=== PATIENT | male | born 1950 | race Caucasian/White ===

== ENCOUNTER 2017-04-23 08:39 | Inpatient (IN) | payer OTHER, MEDICARE ==
[~2017-04-23] VITALS: Ht 182.9 cm; Wt 100.6 kg
[~2017-04-23 08:39] MED LIST: Z.0.UNKNOWN
[2017-04-23] MEDS ORDERED: SODIUM CHLOR 0.9% 1000 ML INJ 1,000 ML IV SCH (09:16)
[2017-04-23 09:17] VITALS: BP 183/96; PULSE 104; RESP 20; TEMP 98.3
--- NOTE | 2017-04-23 09:19 | PD ---
HPI Chief Complaint: Tremors, altered mental status Time Seen by Provider: 09:16 Travel History International Travel<30 days: No Contact w/Intl Traveler<30days: No History of Present Illness HPI Patient states he normally drinks 6 beers per day but has been cutting back recently and had a glass of wine last night. Apparently he was at the [facility] having normal blood work but when he stood up he became somewhat dizzy and noticed his arms and legs were shaking, they took his blood pressure noted to be significantly elevated so they called and wanted to bring him here. Patient denies any headache focalized wheeziness chest pain shortness of breath abdominal pain nausea vomiting. Patient states his symptoms are going on and off for the past few months, he does not know how long they have been going on now. PFSH Past Medical History Arthritis: No Asthma: No Autoimmune Disease: No Blood Disorders: No Anxiety: No Depression: No Heart Rhythm Problems: No Cancer: No Cardiovascular Problems: Yes High Cholesterol: Yes Chest Pain: No Congestive Heart Failure: No COPD: No Cerebrovascular Accident: No Diabetes: No Diminished Hearing: No Endocrine: No Gastrointestinal Disorders: Yes GERD: Yes Glaucoma: No Genitourinary: No Headaches: No Hepatitis: No Hiatal Hernia: No Hypertension: No Immune Disorder: No Kidney Stones: No Musculoskeletal: No Neurologic: Yes Psychiatric: No Reproductive: No Respiratory: No Migraines: No Myocardial Infarction: No Renal Failure: No Seizures: No Sickle Cell Disease: No Sleep Apnea: No Thyroid Disease: No Ulcer: No Past Surgical History Abdominal Surgery: No AICD: No Appendectomy: No Arteriovenous Shunt: No Cardiac Surgery: No Cholecystectomy: No Ear Surgery: No Endocrine Surgery: No Eye Surgery: No Genitourinary Surgery: No Gynecologic Surgery: No Insulin Pump: No Joint Replacement: No Oral Surgery: Yes (TEETH EXTRACTIONS) Pacemaker: No Thoracic Surgery: No Other Surgery: Yes Social History Alcohol Use: Yes (6 TO 8 DAILY, OCCASSIONALLY VODKA) Tobacco Use: Yes (1/2 PACK/DAY) Substance Use: No Allergies-Medications (Allergen,Severity, Reaction): Coded Allergies: No Known Allergies (Verified Adverse Reaction, Unknown, 04/23/17) Reported Meds & Prescriptions Reported Meds & Active Scripts Active Active Prescriptions or Reported Medications Unobtainable Review of Systems ROS Limitations: Altered Mental Status Except as stated in HPI: all other systems reviewed are Neg Physical Exam Narrative GENERAL: Well-developed, well-nourished, no obvious distress peer SKIN: Focused skin assessment warm/dry. HEAD: Atraumatic. Normocephalic. EYES: Pupils equal and round. No scleral icterus. No injection or drainage. ENT: No nasal bleeding or discharge. Mucous membranes pink and moist. NECK: Trachea midline. No JVD. CARDIOVASCULAR: Regular rate and rhythm. No murmur appreciated. RESPIRATORY: No accessory muscle use. Clear to auscultation. Breath sounds equal bilaterally. GASTROINTESTINAL: Abdomen soft, non-tender, nondistended. Hepatic and splenic margins not palpable. MUSCULOSKELETAL: No obvious deformities. No clubbing. No cyanosis. No edema. NEUROLOGICAL: Awake and alert, oriented to self and place, can tell me the date but has trouble identifying the month of the year. He has some mild stuttering , has tremor of his jaw as well as bilateral upper extremities and lower extremities. This seems to be at rest and when he spreads his fingers, has no pronator drift, significant tremor when performing [id number] but is able to find my finger with his own bilaterally. His DTRs are 2+ in bilateral equal in the patella and Achilles and brachial areas. Cranial nerves II through XII appear to be intact and nonfocal. PSYCHIATRIC: Appropriate mood and affect; insight and judgment normal. Data Data Last Documented VS Vital Signs Date Time Temp Pulse Resp B/P (MAP) Pulse Ox O2 Delivery O2 Flow Rate FiO2 04/23/17 12:41 105 18 190/97 (128) 94 Room Air 04/23/17 09:17 98.3 Orders Orders Electrocardiogram (04/23/17 09:16) Ammonia (04/23/17 09:16) Complete Blood Count With Diff (04/23/17 09:16) Comprehensive Metabolic Panel (04/23/17 09:16) Prothrombin Time / Inr (Pt) (04/23/17 09:16) Act Partial Throm Time (Ptt) (04/23/17 09:16) Thyroid Stimulating Hormone (04/23/17 09:16) Urinalysis - C+S If Indicated (04/23/17 09:16) Ct Brain W/O Iv Contrast(Rout) (04/23/17 09:16) Blood Glucose (04/23/17 09:16) Ecg Monitoring (04/23/17 09:16) Iv Access Insert/Monitor (04/23/17 09:16) Oximetry (04/23/17 09:16) Sodium Chloride 0.9% Flush (Ns Flush) (04/23/17 09:30) Sodium Chlor 0.9% 1000 Ml Inj (Ns 1000 M (04/23/17 09:16) Drug Screen, Random Urine (04/23/17 09:16) Alcohol (Ethanol) (04/23/17 09:16) Lorazepam Inj (Ativan Inj) (04/23/17 09:30) Lorazepam Inj (Ativan Inj) (04/23/17 11:00) Mri Brain W&W/O Contrast (04/23/17 ) Thiamine Inj (Thiamine Inj) (04/23/17 12:15) Admit Order (Ed Use Only) (04/23/17 ) Labs Laboratory Tests Test 04/23/17 09:25 04/23/17 09:30 White Blood Count 5.9 TH/MM3 Red Blood Count 4.05 MIL/MM3 Hemoglobin 13.0 GM/DL Hematocrit 38.6 % Mean Corpuscular Volume 95.3 FL Mean Corpuscular Hemoglobin 32.1 PG Mean Corpuscular Hemoglobin Concent 33.7 % Red Cell Distribution Width 14.5 % Platelet Count 52 TH/MM3 Mean Platelet Volume 9.1 FL Neutrophils (%) (Auto) 83.0 % Lymphocytes (%) (Auto) 7.8 % Monocytes (%) (Auto) 8.6 % Eosinophils (%) (Auto) 0.2 % Basophils (%) (Auto) 0.4 % Neutrophils # (Auto) 4.9 TH/MM3 Lymphocytes # (Auto) 0.5 TH/MM3 Monocytes # (Auto) 0.5 TH/MM3 Eosinophils # (Auto) 0.0 TH/MM3 Basophils # (Auto) 0.0 TH/MM3 CBC Comment AUTO DIFF Differential Comment AUTO DIFF CONFIRMED Platelet Estimate LOW Platelet Morphology Comment NORMAL Prothrombin Time 13.3 SEC Prothromb Time International Ratio 1.3 RATIO Activated Partial Thromboplast Time 29.8 SEC Blood Urea Nitrogen 8 MG/DL Creatinine 0.77 MG/DL Random Glucose 135 MG/DL Total Protein 8.8 GM/DL Albumin 4.0 GM/DL Calcium Level 9.2 MG/DL Alkaline Phosphatase 197 U/L Aspartate Amino Transf (AST/SGOT) 93 U/L Alanine Aminotransferase (ALT/SGPT) 34 U/L Total Bilirubin 2.0 MG/DL Sodium Level 136 MEQ/L Potassium Level 3.7 MEQ/L Chloride Level 100 MEQ/L Carbon Dioxide Level 22.3 MEQ/L Anion Gap 14 MEQ/L Estimat Glomerular Filtration Rate 101 ML/MIN Thyroid Stimulating Hormone 3rd Gen 2.510 uIU/ML Ethyl Alcohol Level 28 MG/DL Ammonia 33 MCMOL/L [facility] Medical Decision Making Medical Screen Exam Complete: Yes Emergency Medical Condition: Yes Differential Diagnosis Alcohol withdrawal, ataxia, tremors, cerebellar stroke is a possibility. Narrative Course Patient room to the emergency department, fairly disoriented and has tremors, he was given 3 mg of Ativan for the tremor is no better, nursing is spoken with the patient's , is unclear as to the timeline of the patient's symptoms. I have had no different than 3 different history from this patient. At first he told me he only had a glass of wine yesterday, then he told me he had a sixpack of beer yesterday according to his he continues to drink heavily every night and has done so for years. 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 On reassessment the patient's fairly diaphoretic consistent with alcohol withdrawals. My index of suspicion for cerebellar stroke is fairly low but the patient does have an MRI ordered and will pursue this. The patient was initially discussed with Dr. Gold and he would like the patient go to the ICU , discussed with Dr. Zelaya for admission and he is agreeable. MRI still pending at this time, this was discussed with Dr. Zelaya Critical Care Narrative Aggregate critical care time was 35 minutes. Time to perform other separately billable procedures was not included in the critical care time. My time did not include minutes spent treating any other patients simultaneously or on activities that did not directly contribute to the patient's treatment. The services I provided to this patient were to treat and/or prevent clinically significant deterioration that could result in: , disability, organ failure I provided critical care services requiring my management, as noted below: Patient required frequent reassessment and Ativan dosing. Chart data review, documentation time, medication orders and management, vital sign assessments/reviewing monitor data, ordering and reviewing lab tests, ordering and interpreting/reviewing x-rays and diagnostic studies, care of the patient and discussion of the patient with the admitting physicians. Diagnosis Primary Impression: Delirium tremens Admitting Information Admitting Physician Requests: Admit Scripts Unable to Obtain Active Prescriptions or Reported Meds Condition: Orion Rojas MD Apr 23, 2017 09:19
[2017-04-23] MEDS ORDERED: LORazepam 2 MG/ML VIAL IV PUSH ONE ×2 (09:30→11:00)
[2017-04-23] MEDS ORDERED: SODIUM CHLORIDE 0.9% FLUSH 10 ML FLUSH IV FLUSH PRN ×2 (09:30→13:15)
[2017-04-23 09:54] LABS: AUTOMATED NEUTROPHIL # 4.9 TH/MM3 (1.8-7.7); BASOPHIL % 0.4 % (0.0-2.0); EOSINOPHIL % 0.2 % (0.0-4.0); HEMATOCRIT 38.6 % (39.0-51.0); LYMPH % 7.8 % (9.0-44.0); LYMPHOCYTE # 0.5 TH/MM3 (1.0-4.8); MEAN CELL VOLUME 95.3 FL (80.0-100.0); MEAN CORPUSCULAR HEMOGLOBIN 32.1 PG (27.0-34.0); MEAN CORPUSCULAR HGB CONC 33.7 % (32.0-36.0); MEAN PLATELET VOLUME 9.1 FL (7.0-11.0); MONO % 8.6 % (0.0-8.0); MONOCYTE # 0.5 TH/MM3 (0-0.9); PLATELET COUNT 52 TH/MM3 (150-450); RED BLOOD COUNT 4.05 MIL/MM3 (4.50-5.90); RED CELL DISTRIBUTION WIDTH 14.5 % (11.6-17.2); WHITE BLOOD COUNT 5.9 TH/MM3 (4.0-11.0)
[2017-04-23 09:57] LABS: INTERNATIONAL NORMALIZED RATIO 1.3 RATIO; PROTHROMBIN TIME - PATIENT 13.3 SEC (9.8-11.6)
--- NOTE | 2017-04-23 09:57 | RADRPT ---
EXAM DATE/TIME: 04/23/2017 09:34 [facility] COMPARISON: CT BRAIN W/O CONTRAST, November 25, 2011, 9:50. INDICATIONS : Altered mental status. Dizziness. RADIATION DOSE: 38.73 CTDIvol (mGy) MEDICAL HISTORY : Cardiovascular disease. SURGICAL HISTORY : None. ENCOUNTER: Initial ACUITY: 1 day PAIN SCALE: 0/10 LOCATION: cranial TECHNIQUE: Multiple contiguous axial images were obtained of the head. Using automated exposure control and adj ustment of the mA and/or kV according to patient size, radiation dose was kept as low as reasonably a chievable to obtain optimal diagnostic quality images. DICOM format image data is available electro nically for review and comparison. FINDINGS: CEREBRUM: Mild diffuse cerebral volume loss. The ventricles are normal for age. No evidence of midline shift, mass lesion, hemorrhage or acute infarction. No extra-axial fluid collections are seen. POSTERIOR FOSSA: The cerebellum and brainstem are intact. The 4th ventricle is midline. The cerebellopontine angle i s unremarkable. EXTRACRANIAL: The visualized portion of the orbits is intact. SKULL: The calvaria is intact. No evidence of skull fracture. CONCLUSION: 1. No acute intracranial abnormality. Manny Chavez MD on April 23, 2017 at 9:51 Board Certified Radiologist. This report was verified electronically.
[2017-04-23 10:07] LABS: AST (GOT) 93 U/L (15-37); BICARBONATE 22.3 MEQ/L (21.0-32.0); BLOOD UREA NITROGEN 8 MG/DL (7-18); CALCIUM 9.2 MG/DL (8.5-10.1); CHLORIDE 100 MEQ/L (98-107); CREATININE 0.77 MG/DL (0.60-1.30); GLOMERULAR FILTRATION RATE 101 ML/MIN (>89); GLUCOSE,RANDOM 135 MG/DL (74-106); SODIUM (NA) 136 MEQ/L (136-145)
[2017-04-23 10:08] LABS: ALT (GPT) 34 U/L (12-78)
[2017-04-23 10:18] LABS: ALKALINE PHOSPHATASE 197 U/L (45-117); TOTAL PROTEIN 8.8 GM/DL (6.4-8.2)
[2017-04-23] MEDS ORDERED: THIAMINE INJ 100 MG in SODIUM CHLORIDE 0.9% INJ 100 ML IV ONE (12:15)
[2017-04-23 12:41] VITALS: BP 190/97; PULSE 105; RESP 18; O2SAT 94
[2017-04-23] MEDS ORDERED: SODIUM PHOSPHATE INJ 30 MMOL in SODIUM CHLOR 0.9% 250 ML INJ 240 ML IV PRN (13:15)
[2017-04-23] MEDS ORDERED: LACTULOSE SYRUP 20 GM/30 ML CUP PO PRN (13:15)
[2017-04-23] MEDS ORDERED: METOCLOPRAMIDE HCL 10 MG/2 ML VIAL IV PUSH PRN (13:15)
[2017-04-23] MEDS ORDERED: MAGNESIUM SULFATE INJ 4 GM in SODIUM CHLORIDE 0.9% INJ 92 ML IV PRN (13:15)
[2017-04-23] MEDS ORDERED: MAGNESIUM HYDROXIDE SUSP 30 ML CUP PO PRN (13:15)
[2017-04-23] MEDS ORDERED: MAGNESIUM OXIDE 400 MG TAB PO PRN (13:15)
[2017-04-23] MEDS ORDERED: cloNIDine HCL 0.1 MG TAB PO PRN (13:15)
[2017-04-23] MEDS ORDERED: POTASSIUM PHOSPHATE INJ 30 MMOL in SODIUM CHLOR 0.9% 250 ML INJ 250 ML IV PRN (13:15)
[2017-04-23] MEDS ORDERED: BISACODYL 10 MG SUPP RECTAL PRN (13:15)
[2017-04-23] MEDS ORDERED: POTASSIUM CHLOR 40 MEQ PREMIX 100 ML IV PRN ×2 (13:15)
[2017-04-23] MEDS ORDERED: POTASSIUM PHOSPHATE MONOBASIC 500 MG TAB PO/TUBE PRN (13:15)
[2017-04-23] MEDS ORDERED: MAGNESIUM SULFATE INJ 2 GM in SODIUM CHLORIDE 0.9% INJ 96 ML IV PRN (13:15)
[2017-04-23] MEDS ORDERED: POTASSIUM CHLORIDE 25 MEQ EFFERVESCENT TAB PO PRN (13:15)
[2017-04-23] MEDS ORDERED: ENOXAPARIN SODIUM 40 MG/0.4 ML SYRINGE SQ SCH (13:15)
[2017-04-23] MEDS ORDERED: ONDANSETRON HCL 4 MG/2 ML VIAL IV PUSH PRN ×2 (13:15)
[2017-04-23] MEDS ORDERED: MISCELLANEOUS NURSING INFORMATION XX SCH (13:15)
[2017-04-23] MEDS ORDERED: POTASSIUM CHLOR 20 MEQ PREMIX 100 ML IV PRN ×2 (13:15)
[2017-04-23] MEDS ORDERED: CHLORHEXIDINE GLUCONATE 2 % 1 PACK (2 CLOTHS) TOP PRN (13:15)
[2017-04-23] MEDS ORDERED: SENNOSIDES 8.6 MG TAB PO PRN (13:15)
[2017-04-23] MEDS ORDERED: RESP: ALBUTEROL 2.5 MG/IPRATROPIUM 0.5 MG NEB (PRN) INH (13:15)
[2017-04-23] MEDS ORDERED: ACETAMINOPHEN 325 MG TAB PO PRN (13:15)
[2017-04-23] MEDS ORDERED: POTASSIUM PHOSPHATE MONOBASIC 500 MG TAB PO PRN (13:15)
--- NOTE | 2017-04-23 13:54 | RADRPT ---
EXAM DATE/TIME: 04/23/2017 13:22 [facility] COMPARISON: CT BRAIN W/O CONTRAST, April 23, 2017, 9:34. INDICATIONS : Altered mental status. Dizziness. MEDICAL HISTORY : Hypercholesterolemia. Chronic obstructive pulmonary disease. Carcinoma, prostate. ETOH SURGICAL HISTORY : None. ENCOUNTER: Subsequent ACUITY: 2 day PAIN SCORE: 0/10 LOCATION: cranial TECHNIQUE: Multiplanar, multisequence MRI of the brain was performed without contrast. FINDINGS: CEREBRUM: The ventricles are normal for age. No evidence of midline shift, mass lesion, hemorrhage or acute in farction. No extraaxial fluid collections are seen. The pituitary gland and suprasellar cistern are normal in configuration. WHITE MATTER: Mild occasional benign-appearing white matter signal change. POSTERIOR FOSSA: The cerebellum and brainstem are intact. The 4th ventricle is midline. The cerebellopontine angle is unremarkable. The cerebellar tonsils are normal in position. DIFFUSION IMAGING: No focal areas of restricted diffusion are seen. No evidence of acute infarction. EXTRACRANIAL: The visualized portions of the orbits and paranasal sinuses are unremarkable. CONCLUSION: No acute intracranial findings Heriberto Bay MD on April 23, 2017 at 13:51 Board Certified Radiologist. This report was verified electronically.
[2017-04-23] MEDS ORDERED: cloNIDine HCL 0.2 MG TAB PO ONE (14:03)
[2017-04-23] MEDS: chlordiazePOXIDE 25 MG CAP PO SCH ×2 (14:52→21:01)
[2017-04-23] MEDS: PANTOPRAZOLE SODIUM 40 MG VIAL IV PUSH SCH (14:53)
[2017-04-23] MEDS: LORazepam 2 MG/ML VIAL IV PUSH SCH ×3 (14:53→22:59)
[2017-04-23] MEDS: MULTIVITAMIN INJ 10 ML, FOLIC ACID INJ 1 MG in SODIUM CHLORID 0.9% 500 ML INJ 500 ML IV SCH (15:05)
[2017-04-23] MEDS: D5-1/2 NS + KCL 20 MEQ INJ 1,000 ML IV SCH ×2 (15:07→22:59)
[2017-04-23 15:11] LABS: BILIRUBIN, URINE NEG (NEG); BLOOD, URINE NEG (NEG); GLUCOSE,URINE NEG (NEG); KETONE, URINE 10 mg/dL (NEG); NITRITE,URINE NEG (NEG); URINE COLOR YELLOW (YELLW/STRAW); URINE LEUKOCYTE ESTERASE NEG (NEG)
[2017-04-23 15:12] VITALS: BP 183/99; PULSE 96; RESP 17; O2SAT 93
--- NOTE | 2017-04-23 18:52 | EKG ---
Date Performed: 04/23/2017 Time Performed: 09:49:31 PTAGE: 67 years EKG: Sinus rhythm NORMAL ECG Since the prior tracing, there has been no significant change PREVIOUS TRACING : 11/25/2011 09.34 DOCTOR: Fatimah Green Interpretating Date/Time 04/23/2017 18:47:46
[2017-04-23 19:06] VITALS: BP 173/90; PULSE 86; RESP 16; O2SAT 95
[2017-04-23 20:00] VITALS: BP 167/88; PULSE 79; RESP 20; TEMP 99.5; O2SAT 95
[2017-04-23] MEDS: SODIUM CHLORIDE 0.9% FLUSH 10 ML FLUSH IV FLUSH SCH (20:49)
[2017-04-23] MEDS: DOCUSATE SODIUM 50 MG/SENNA 8.6 MG TAB PO SCH (20:49)
--- NOTE | 2017-04-23 21:37 | HHI.HP ---
HPI Service Critical Care Medicine Primary Care Physician [facility] Admission Diagnosis Alcohol Withdrawal/Tremors Diagnosis: Travel History International Travel<30 Days: No Contact w/Intl Traveler <30 Da: No Traveled to Known Affected Are: No History of Present Illness History of Present Illness HPI Patient states he normally drinks 6 beers per day but has been cutting back recently and had a glass of wine last night. [facility] but when he stood up he became somewhat dizzy and noticed his arms and legs were shaking, they took his blood pressure noted to be significantly elevated so they called and wanted to bring him here. Patient denies any headache focalized wheeziness chest pain shortness of breath abdominal pain nausea vomiting. Patient states his symptoms are going on and off for the past few months, he does not know how long they have been going on now. Patient was evaluated in the ER and was felt to be in alcohol withdrawal with bilateral tremors in his upper extremities. Hospitalist service was contacted however felt patient needed to be admitted to the ICU. Patient was accepted for admission by critical care medicine service. He had an MRI brain which was unremarkable. When I evaluated the patient following his arrival to the ICU he was laying in bed comfortably not in any acute distress. He did not appear anxious or agitated. His CIWA score was 12 and he received Ativan per protocol. History PFSH Past Medical History Arthritis: No Asthma: No Autoimmune Disease: No Blood Disorders: No Anxiety: No Depression: No Heart Rhythm Problems: No Cancer: No Cardiovascular Problems: Yes High Cholesterol: Yes Chest Pain: No Congestive Heart Failure: No COPD: No Cerebrovascular Accident: No Diabetes: No Diminished Hearing: No Endocrine: No Gastrointestinal Disorders: Yes GERD: Yes Glaucoma: No Genitourinary: No Headaches: No Hepatitis: No Hiatal Hernia: No Hypertension: No Immune Disorder: No Kidney Stones: No Musculoskeletal: No Neurologic: Yes Psychiatric: No Reproductive: No Respiratory: No Migraines: No Myocardial Infarction: No Renal Failure: No Seizures: No Sickle Cell Disease: No Sleep Apnea: No Thyroid Disease: No Ulcer: No Past Surgical History Abdominal Surgery: No AICD: No Appendectomy: No Arteriovenous Shunt: No Cardiac Surgery: No Cholecystectomy: No Ear Surgery: No Endocrine Surgery: No Eye Surgery: No Genitourinary Surgery: No Gynecologic Surgery: No Insulin Pump: No Joint Replacement: No Oral Surgery: Yes (TEETH EXTRACTIONS) Pacemaker: No Thoracic Surgery: No Other Surgery: Yes Social History Alcohol Use: Yes (6 TO 8 DAILY, OCCASSIONALLY VODKA) Tobacco Use: Yes (1/2 PACK/DAY) Substance Use: No Allergies-Medications Allergies-Medications (Allergen,Severity, Reaction): Coded Allergies: No Known Allergies (Verified Adverse Reaction, Unknown, 04/23/17) Reported Meds & Prescriptions Reported Meds & Active Scripts Active Active Prescriptions or Reported Medications Unobtainable ROS Review of Systems Except as stated in HPI: all other systems reviewed are Neg Past Family Social History Allergies: Coded Allergies: No Known Allergies (Verified Allergy, Unknown, 04/23/17) Physical Exam Vital Signs Vital Signs Date Time Temp Pulse Resp B/P (MAP) Pulse Ox O2 Delivery O2 Flow Rate FiO2 04/23/17 20:00 79 04/23/17 20:00 99.5 79 20 167/88 (114) 95 04/23/17 19:06 86 16 173/90 (117) 95 Room Air 04/23/17 15:12 96 17 183/99 (127) 93 Room Air 04/23/17 12:41 105 18 190/97 (128) 94 Room Air 04/23/17 09:17 98.3 104 20 183/96 (125) Physical Exam Narrative GENERAL: Well-developed, well-nourished, no obvious distress peer SKIN: Focused skin assessment warm/dry. HEAD: Atraumatic. Normocephalic. EYES: Pupils equal and round. No scleral icterus. No injection or drainage. ENT: No nasal bleeding or discharge. Mucous membranes pink and moist. NECK: Trachea midline. No JVD. CARDIOVASCULAR: Regular rate and rhythm. No murmur appreciated. RESPIRATORY: No accessory muscle use. Clear to auscultation. Breath sounds equal bilaterally. GASTROINTESTINAL: Abdomen soft, non-tender, nondistended. Hepatic and splenic margins not palpable. MUSCULOSKELETAL: No obvious deformities. No clubbing. No cyanosis. No edema. NEUROLOGICAL: Awake and alert, oriented to self and place, can tell me the date but has trouble identifying the month of the year. He has some mild stuttering , has tremor of his jaw as well as bilateral upper extremities and lower extremities. This seems to be at rest and when he spreads his fingers, has no pronator drift, significant tremor when performing [id number] but is able to find my finger with his own bilaterally. His DTRs are 2+ in bilateral equal in the patella and Achilles and brachial areas. Cranial nerves II through XII appear to be intact and nonfocal. PSYCHIATRIC: Appropriate mood and affect; insight and judgment normal. Laboratory Laboratory Tests Test 04/23/17 09:25 04/23/17 09:30 04/23/17 14:42 White Blood Count 5.9 Red Blood Count 4.05 Hemoglobin 13.0 Hematocrit 38.6 Mean Corpuscular Volume 95.3 Mean Corpuscular Hemoglobin 32.1 Mean Corpuscular Hemoglobin Concent 33.7 Red Cell Distribution Width 14.5 Platelet Count 52 Mean Platelet Volume 9.1 Neutrophils (%) (Auto) 83.0 Lymphocytes (%) (Auto) 7.8 Monocytes (%) (Auto) 8.6 Eosinophils (%) (Auto) 0.2 Basophils (%) (Auto) 0.4 Neutrophils # (Auto) 4.9 Lymphocytes # (Auto) 0.5 Monocytes # (Auto) 0.5 Eosinophils # (Auto) 0.0 Basophils # (Auto) 0.0 CBC Comment AUTO DIFF Differential Comment AUTO DIFF CONFIRMED Platelet Estimate LOW Platelet Morphology Comment NORMAL Prothrombin Time 13.3 Prothromb Time International Ratio 1.3 Activated Partial Thromboplast Time 29.8 Blood Urea Nitrogen 8 Creatinine 0.77 Random Glucose 135 Total Protein 8.8 Albumin 4.0 Calcium Level 9.2 Alkaline Phosphatase 197 Aspartate Amino Transf (AST/SGOT) 93 Alanine Aminotransferase (ALT/SGPT) 34 Total Bilirubin 2.0 Sodium Level 136 Potassium Level 3.7 Chloride Level 100 Carbon Dioxide Level 22.3 Anion Gap 14 Estimat Glomerular Filtration Rate 101 Thyroid Stimulating Hormone 3rd Gen 2.510 Ethyl Alcohol Level 28 Ammonia 33 Urine Color YELLOW Urine Turbidity CLEAR Urine pH 8.0 Urine Specific [place] 1.012 Urine Protein TRACE Urine Glucose (UA) NEG Urine Ketones 10 Urine Occult Blood NEG Urine Nitrite NEG Urine Bilirubin NEG Urine Urobilinogen LESS THAN 2.0 Urine Leukocyte Esterase NEG Urine RBC 1 Microscopic Urinalysis Comment CATH-CULT NOT IND Urine Opiates Screen NEG Urine Barbiturates Screen NEG Urine Amphetamines Screen NEG Urine Benzodiazepines Screen NEG Urine Cocaine Screen NEG Urine Cannabinoids Screen NEG Result Diagram: 04/23/1792404/23/17924 Imaging Last Impressions Head CT 04/23/17 0916 Signed Impressions: Service Date/Time: Sunday, April 23, 2017 09:34 - CONCLUSION: 1. No acute intracranial abnormality. Manny Chavez MD Brain MRI 04/23/17 0000 Signed Impressions: Service Date/Time: Sunday, April 23, 2017 13:22 - CONCLUSION: No acute intracranial findings Heriberto Bay MD Caprini VTE Risk Assessment Caprini VTE Risk Assessment: Mod/High Risk (score >= 2) Caprini Risk Assessment Model Point Value = 1 Point Value = 2 Point Value = 3 Point Value = 5 Age 41-60 Minor surgery BMI > 25 kg/m2 Swollen legs Varicose veins or History of unexplained or recurrent spontaneous Oral contraceptives or hormone replacement Sepsis (< 1 month) Serious lung disease, including pneumonia (< 1 month) Abnormal pulmonary function Acute myocardial infarction Congestive heart failure (< 1 month) History of inflammatory bowel disease Medical patient at bed rest Age 61-74 Arthroscopic surgery Major open surgery (> 45 min) Laparoscopic surgery (> 45 min) Malignancy Confined to bed (> 72 hours) Immobilizing plaster cast Central venous access Age >= 75 History of VTE Family history of VTE Factor V Leiden Prothrombin [id number] Lupus anticoagulant Anticardiolipin antibodies Elevated serum homocysteine Heparin-induced thrombocytopenia Other congenital or acquired thrombophilia Stroke (< 1 month) Elective arthroplasty Hip, pelvis, or leg fracture Acute spinal cord injury (< 1 month) Prophylaxis Regimen Total Risk Factor Score Risk Level Prophylaxis Regimen 0-1 Low Early ambulation 2 Moderate Order ONE of the following: *Sequential Compression Device (SCD) *Heparin 5000 units SQ BID 3-4 Higher Order ONE of the following medications: *Heparin 5000 units SQ TID *Enoxaparin/Lovenox 40 mg SQ daily (WT < 150 kg, CrCl > 30 mL/min) *Enoxaparin/Lovenox 30 mg SQ daily (WT < 150 kg, CrCl > 10-29 mL/min) *Enoxaparin/Lovenox 30 mg SQ BID (WT < 150 kg, CrCl > 30 mL/min) AND/OR *Sequential Compression Device (SCD) 5 or more Highest Order ONE of the following medications: *Heparin 5000 units SQ TID (Preferred with Epidurals) *Enoxaparin/Lovenox 40 mg SQ daily (WT < 150 kg, CrCl > 30 mL/min) *Enoxaparin/Lovenox 30 mg SQ daily (WT < 150 kg, CrCl > 10-29 mL/min) *Enoxaparin/Lovenox 30 mg SQ BID (WT < 150 kg, CrCl > 30 mL/min) AND *Sequential Compression Device (SCD) Assessment and Plan Assessment and Plan Encephalopathy Alcohol withdrawal Hypertension Plan: Patient admitted to ICU per Hospitalist request per Dr. Santos. On alcohol withdrawal protocol. Continue Ativan/clonidine/Librium as ordered. MRI brain unremarkable. Patient currently appears well controlled on C were protocol. Continue thiamine MVI folic acid. Transferred to hospitalist service for further medical management. No critical care issues at the time of my evaluation. Further recommendations per hospitalist service Critical care will be signing off at this time. He is reconsult if needed. I am ordering patient transfer out of ICU. Chandrakant Zelaya MD Apr 23, 2017 21:36
[2017-04-23 22:00] VITALS: PULSE 73
[2017-04-23] MEDS: LORazepam 2 MG/ML VIAL IV PUSH PRN (22:58)
[2017-04-23] MEDS: cloNIDine HCL 0.1 MG TAB PO SCH (22:58)
[2017-04-24] VITALS (25 sets, daily range): BP systolic 145–180; BP diastolic 77–109; PULSE 64–127; RESP 19–25; TEMP 97.4–99.5; O2SAT 95–97
[2017-04-24] MEDS: LORazepam 2 MG/ML VIAL IV PUSH PRN ×9 (00:16→22:24)
[2017-04-24] MEDS: LORazepam 2 MG/ML VIAL IV PUSH SCH ×2 (02:56→06:39)
[2017-04-24 04:10] LABS: AUTOMATED NEUTROPHIL # 3.4 TH/MM3 (1.8-7.7); BASOPHIL % 0.6 % (0.0-2.0); EOSINOPHIL % 0.9 % (0.0-4.0); HEMATOCRIT 37.4 % (39.0-51.0); HEMOGLOBIN 12.7 GM/DL (13.0-17.0); LYMPH % 11.2 % (9.0-44.0); LYMPHOCYTE # 0.5 TH/MM3 (1.0-4.8); MEAN CELL VOLUME 94.8 FL (80.0-100.0); MEAN CORPUSCULAR HEMOGLOBIN 32.2 PG (27.0-34.0); MEAN PLATELET VOLUME 9.1 FL (7.0-11.0); MONO % 11.9 % (0.0-8.0); MONOCYTE # 0.5 TH/MM3 (0-0.9); NEUT % 75.4 % (16.0-70.0); PLATELET COUNT 50 TH/MM3 (150-450); RED BLOOD COUNT 3.94 MIL/MM3 (4.50-5.90); RED CELL DISTRIBUTION WIDTH 14.8 % (11.6-17.2); WHITE BLOOD COUNT 4.4 TH/MM3 (4.0-11.0)
[2017-04-24 04:40] LABS: ALBUMIN 3.4 GM/DL (3.4-5.0); ALKALINE PHOSPHATASE 171 U/L (45-117); ALT (GPT) 32 U/L (12-78); AST (GOT) 74 U/L (15-37); BICARBONATE 22.5 MEQ/L (21.0-32.0); BLOOD UREA NITROGEN 8 MG/DL (7-18); CALCIUM 8.4 MG/DL (8.5-10.1); CHLORIDE 105 MEQ/L (98-107); CREATININE 0.64 MG/DL (0.60-1.30); GLOMERULAR FILTRATION RATE 126 ML/MIN (>89); GLUCOSE,RANDOM 122 MG/DL (74-106); SODIUM (NA) 137 MEQ/L (136-145); TOTAL BILIRUBIN ADULT 2.3 MG/DL (0.2-1.0)
[2017-04-24] MEDS: CHLORHEXIDINE GLUCONATE 2 % 1 PACK (2 CLOTHS) TOP SCH (04:45)
[2017-04-24] MEDS: cloNIDine HCL 0.1 MG TAB PO SCH ×3 (06:39→20:54)
[2017-04-24] MEDS: D5-1/2 NS + KCL 20 MEQ INJ 1,000 ML IV SCH ×2 (06:40→20:28)
[2017-04-24] MEDS: PANTOPRAZOLE SODIUM 40 MG VIAL IV PUSH SCH (07:44)
[2017-04-24] MEDS: SODIUM CHLORIDE 0.9% FLUSH 10 ML FLUSH IV FLUSH SCH ×2 (07:44→20:28)
[2017-04-24] MEDS: DOCUSATE SODIUM 50 MG/SENNA 8.6 MG TAB PO SCH ×2 (07:44→20:29)
[2017-04-24] MEDS: chlordiazePOXIDE 25 MG CAP PO SCH ×3 (07:44→17:34)
[2017-04-24] MEDS: ARTIFICIAL TEARS OPTH SOLN 15 ML BTL EACH EYE SCH ×3 (07:47→18:00)
--- NOTE | 2017-04-24 11:40 | HHI.PR ---
Subjective Remarks Patient's mental status is improved. He still does not demonstrate an ability to recognize his physical deficit. He tried to get out of bed and almost fell. Delirium tremens is under control with present treatment. Objective Vital Signs Date Time Temp Pulse Resp B/P (MAP) Pulse Ox O2 Delivery O2 Flow Rate FiO2 04/24/17 06:00 71 04/24/17 04:00 72 04/24/17 04:00 99.1 72 25 160/88 (112) 96 04/24/17 02:00 68 04/24/17 00:00 71 04/24/17 00:00 99.0 71 20 145/77 (99) 95 04/23/17 22:00 73 04/23/17 20:00 79 04/23/17 20:00 99.5 79 20 167/88 (114) 95 04/23/17 19:06 86 16 173/90 (117) 95 Room Air 04/23/17 15:12 96 17 183/99 (127) 93 Room Air 04/23/17 12:41 105 18 190/97 (128) 94 Room Air I/O 04/23/17 04/23/17 04/23/17 04/24/17 04/24/17 04/24/17 07:00 15:00 23:00 07:00 15:00 23:00 Intake Total 1101 ml Output Total 1875 ml Balance 1101 ml -1875 ml Intake IV Total 1101 ml Output Urine Total 1875 ml Result Diagram: 04/24/17 0341 04/24/17 0341 Objective Remarks GENERAL: NAD, A&Ox3, no tremors. HEAD: Normocephalic. NECK: Supple, trachea midline. No lymphadenopathy. EYES: No scleral icterus. No injection or drainage. CARDIOVASCULAR: Regular rate and rhythm without murmurs, gallops, or rubs. RESPIRATORY: Breath sounds equal bilaterally. No accessory muscle use. GASTROINTESTINAL: Abdomen soft, non-tender, nondistended. MUSCULOSKELETAL: No cyanosis, or edema. SKIN: Warm and dry. NEURO: No focal neurological deficitis. Global weakness. A/P Problem List: (1) Delirium tremens ICD Code: F10.231 - Alcohol dependence with withdrawal delirium Status: Acute Assessment and Plan 67-year-old male admitted secondary to delirium tremens Encephalopathy Improved Alcoholism Delirium tremens Alcohol withdrawal Continue lap restraint due to fall risk and decreased judgment and patient Discontinue wrist restraints Monitor for withdrawal Continue CIWA protocol Continue folic acid Continue thiamine Global weakness Related to delirium tremens Start physical therapy Hypertension Continue baseline blood pressure treatment Continue as needed blood pressure treatments Follow blood pressures Treat delirium tremens DVT prophylaxis Darius Westbrook MD Apr 24, 2017 11:40
[2017-04-24] MEDS: ENOXAPARIN SODIUM 40 MG/0.4 ML SYRINGE SQ SCH (12:58)
[2017-04-24] MEDS: THIAMINE INJ 100 MG in SODIUM CHLORIDE 0.9% INJ 100 ML IV SCH (12:58)
[2017-04-24] MEDS: MULTIVITAMIN INJ 10 ML, FOLIC ACID INJ 1 MG in SODIUM CHLORID 0.9% 500 ML INJ 500 ML IV SCH (13:39)
[2017-04-25] VITALS (10 sets, daily range): BP systolic 111–178; BP diastolic 64–85; PULSE 69–121; RESP 19–24; TEMP 97.4–98.6; O2SAT 92–96
[2017-04-25] MEDS: LORazepam 2 MG/ML VIAL IV PUSH PRN ×5 (01:20→08:46)
[2017-04-25] MEDS: CHLORHEXIDINE GLUCONATE 2 % 1 PACK (2 CLOTHS) TOP SCH (04:00)
[2017-04-25] MEDS: cloNIDine HCL 0.1 MG TAB PO SCH ×3 (06:08→21:09)
[2017-04-25] MEDS: D5-1/2 NS + KCL 20 MEQ INJ 1,000 ML IV SCH ×3 (06:52→21:11)
[2017-04-25 06:58] LABS: AUTOMATED NEUTROPHIL # 5.6 TH/MM3 (1.8-7.7); BASOPHIL % 0.4 % (0.0-2.0); EOSINOPHIL % 0.4 % (0.0-4.0); HEMATOCRIT 40.6 % (39.0-51.0); HEMOGLOBIN 13.7 GM/DL (13.0-17.0); LYMPH % 9.2 % (9.0-44.0); LYMPHOCYTE # 0.7 TH/MM3 (1.0-4.8); MEAN CELL VOLUME 94.3 FL (80.0-100.0); MEAN CORPUSCULAR HEMOGLOBIN 31.8 PG (27.0-34.0); MEAN CORPUSCULAR HGB CONC 33.7 % (32.0-36.0); MEAN PLATELET VOLUME 9.5 FL (7.0-11.0); MONO % 13.4 % (0.0-8.0); NEUT % 76.6 % (16.0-70.0); PLATELET COUNT 57 TH/MM3 (150-450); RED CELL DISTRIBUTION WIDTH 14.4 % (11.6-17.2); WHITE BLOOD COUNT 7.3 TH/MM3 (4.0-11.0)
[2017-04-25 07:35] LABS: ALKALINE PHOSPHATASE 190 U/L (45-117); ALT (GPT) 37 U/L (12-78); AST (GOT) 98 U/L (15-37); BICARBONATE 19.7 MEQ/L (21.0-32.0); BLOOD UREA NITROGEN 9 MG/DL (7-18); CALCIUM 9.1 MG/DL (8.5-10.1); CHLORIDE 105 MEQ/L (98-107); GLOMERULAR FILTRATION RATE 97 ML/MIN (>89); GLUCOSE,RANDOM 116 MG/DL (74-106); SODIUM (NA) 136 MEQ/L (136-145); TOTAL BILIRUBIN ADULT 2.6 MG/DL (0.2-1.0); TOTAL PROTEIN 9.2 GM/DL (6.4-8.2)
[2017-04-25] MEDS: SODIUM CHLORIDE 0.9% FLUSH 10 ML FLUSH IV FLUSH SCH ×2 (08:44→21:00)
[2017-04-25] MEDS: PANTOPRAZOLE SODIUM 40 MG VIAL IV PUSH SCH (08:45)
[2017-04-25] MEDS: DOCUSATE SODIUM 50 MG/SENNA 8.6 MG TAB PO SCH ×2 (08:45→21:00)
[2017-04-25] MEDS: chlordiazePOXIDE 25 MG CAP PO SCH ×3 (08:45→18:03)
[2017-04-25] MEDS: ARTIFICIAL TEARS OPTH SOLN 15 ML BTL EACH EYE SCH ×3 (09:45→16:55)
--- NOTE | 2017-04-25 12:42 | HHI.PR ---
Subjective Remarks earlier per staff- agitated now irritable, kept eyes closed all times but responded in an angry manner states his name , "what" moves and withdraws all extremities to stimuli Objective Vitals Vital Signs Date Time Temp Pulse Resp B/P (MAP) Pulse Ox O2 Delivery O2 Flow Rate FiO2 04/25/17 12:24 97.4 77 20 111/64 (80) 95 04/25/17 11:45 94 Room Air 04/25/17 08:33 98.6 107 20 159/79 (105) 94 04/25/17 04:13 Room Air 04/25/17 04:12 98.4 106 20 151/83 (105) 96 04/25/17 04:00 112 04/25/17 00:50 98.0 113 20 178/84 (115) 96 04/25/17 00:00 121 04/25/17 00:00 Room Air 04/24/17 23:32 99.0 127 24 180/109 (132) 96 04/24/17 20:31 98.4 73 20 178/98 (124) 97 04/24/17 20:30 98.4 76 19 178/98 (124) 97 04/24/17 20:00 64 04/24/17 20:00 Room Air 04/24/17 16:50 97.4 65 19 177/89 (118) 96 04/24/17 14:30 76 04/24/17 14:00 90 04/24/17 13:30 65 04/24/17 13:00 80 I/O 04/24/17 04/24/17 04/24/17 04/25/17 04/25/17 04/25/17 06:59 14:59 22:59 06:59 14:59 22:59 Intake Total 1239 ml 999 ml Output Total 1875 ml 375 ml 1775 ml Balance -1875 ml 864 ml -776 ml Intake Oral 240 ml 0 ml IV Total 999 ml 999 ml Output Urine Total 1875 ml 375 ml 1775 ml # Bowel Movements 0 Result Diagram: 04/25/17 0529 04/25/17 0529 Imaging Last Impressions Head CT 04/23/17 0916 Signed Impressions: Service Date/Time: Sunday, April 23, 2017 09:34 - CONCLUSION: 1. No acute intracranial abnormality. Manny Chavez MD Brain MRI 04/23/17 0000 Signed Impressions: Service Date/Time: Sunday, April 23, 2017 13:22 - CONCLUSION: No acute intracranial findings Heriberto Bay MD Objective Remarks drowsy, easily agitated anicteric, pupils equal conjunctivae with yellowish discharge, injected conjunctivae neck supple lungs- no rales or wheezes regular rhythm abdomen soft, globular, + bowel sounds, nontender, no rebound extremities no edema Neuro exam_ drowsy, moves all extremities spontaenously and to painful stimuli A/P Assessment and Plan 67-year-old male admitted secondary to delirium tremens Encephalopathy secondary to DTs - monitor MS Alcoholism- Delirium tremens Alcohol withdrawal Continue lap restraint due to fall risk and decreased judgment and patient Discontinue wrist restraints Monitor for withdrawal Continue CIWA protocol Continue folic acid Continue thiamine Global weakness Related to delirium tremens PT/OT daily will need rehab Hypertension - continue Clonidine 0.1 mg po q 8 Continue as needed blood pressure treatments Follow blood pressures Treat delirium tremens DVT prophylaxis Lovenox CM consult- will need SNF ideally Bonny Perez MD Apr 25, 2017 12:42
[2017-04-25] MEDS: THIAMINE INJ 100 MG in SODIUM CHLORIDE 0.9% INJ 100 ML IV SCH (13:48)
[2017-04-25] MEDS: ENOXAPARIN SODIUM 40 MG/0.4 ML SYRINGE SQ SCH (13:49)
[2017-04-25] MEDS: MULTIVITAMIN INJ 10 ML, FOLIC ACID INJ 1 MG in SODIUM CHLORID 0.9% 500 ML INJ 500 ML IV SCH (15:13)
[2017-04-26] VITALS (12 sets, daily range): BP systolic 110–146; BP diastolic 57–89; PULSE 58–82; RESP 18–24; TEMP 97–98.7; O2SAT 94–96
[2017-04-26] MEDS: CHLORHEXIDINE GLUCONATE 2 % 1 PACK (2 CLOTHS) TOP SCH (03:41)
[2017-04-26] MEDS: cloNIDine HCL 0.1 MG TAB PO SCH ×3 (06:08→21:24)
[2017-04-26] MEDS: PANTOPRAZOLE SODIUM 40 MG VIAL IV PUSH SCH (08:43)
[2017-04-26] MEDS: THIAMINE HCL 100 MG TAB PO SCH (08:43)
[2017-04-26] MEDS: DOCUSATE SODIUM 50 MG/SENNA 8.6 MG TAB PO SCH ×2 (08:43→21:00)
[2017-04-26] MEDS: chlordiazePOXIDE 25 MG CAP PO SCH ×3 (08:43→17:09)
[2017-04-26] MEDS: SODIUM CHLORIDE 0.9% FLUSH 10 ML FLUSH IV FLUSH SCH ×2 (08:44→21:25)
[2017-04-26] MEDS: D5-1/2 NS + KCL 20 MEQ INJ 1,000 ML IV SCH (08:48)
[2017-04-26] MEDS: ARTIFICIAL TEARS OPTH SOLN 15 ML BTL EACH EYE SCH ×3 (08:48→17:09)
--- NOTE | 2017-04-26 09:41 | HHI.PR ---
Subjective Remarks patient is definitely more pleasant and interactive in a good mood denies any pain Objective Vitals Vital Signs Date Time Temp Pulse Resp B/P (MAP) Pulse Ox O2 Delivery O2 Flow Rate FiO2 04/26/17 08:48 97.0 66 20 131/76 (94) 95 04/26/17 04:00 61 04/26/17 03:58 Room Air 04/26/17 03:56 98.7 66 18 146/83 (104) 94 04/26/17 00:15 98.2 58 24 127/69 (88) 96 04/26/17 00:00 59 04/25/17 21:08 97.5 69 24 126/71 (89) 92 04/25/17 20:10 Room Air 04/25/17 16:09 98.4 75 19 136/85 (102) 95 04/25/17 12:24 97.4 77 20 111/64 (80) 95 04/25/17 12:00 77 04/25/17 11:45 94 Room Air I/O 04/25/17 04/25/17 04/25/17 04/26/17 04/26/17 04/26/17 06:59 14:59 22:59 06:59 14:59 22:59 Intake Total 999 ml 3079 ml 0 ml Output Total 1775 ml 450 ml Balance -776 ml 3079 ml -450 ml Intake Oral 0 ml 480 ml 0 ml IV Total 999 ml 2599 ml Output Urine Total 1775 ml 450 ml # Voids 3 # Bowel Movements 0 0 0 Result Diagram: 04/25/17 0529 04/25/17 0529 Imaging Last Impressions Head CT 04/23/17 0916 Signed Impressions: Service Date/Time: Sunday, April 23, 2017 09:34 - CONCLUSION: 1. No acute intracranial abnormality. Manny Chavez MD Brain MRI 04/23/17 0000 Signed Impressions: Service Date/Time: Sunday, April 23, 2017 13:22 - CONCLUSION: No acute intracranial findings Heriberto Bay MD Objective Remarks awake and alert, and pleasant and interactive anicteric conjunctivae- less erythema, less pus neck supple lungs- no rales or wheezes regular rhythm abdomen soft, globular, + bowel sounds, nontender, no rebound extremities no edema Neuro exam_- a x ox 3, CN intact moves all extremities spontaneously A/P Assessment and Plan 67-year-old male admitted secondary to delirium tremens Encephalopathy secondary to DTs - monitor MS- Improved Alcoholism- Delirium tremens Alcohol withdrawal Continue CIWA protocol Continue folic acid Continue thiamine Global weakness Related to delirium tremens PT/OT daily will need rehab Hypertension- - continue Clonidine 0.1 mg po q 8- improved Continue as needed blood pressure treatments Follow blood pressures Treat delirium tremens Alcohol Liver disease - counselled extensively 'ff LFTs DVT prophylaxis Lovenox Increase activity CM consult-OP referral to Bonny Blunt MD Apr 26, 2017 09:41
[2017-04-26] MEDS: ENOXAPARIN SODIUM 40 MG/0.4 ML SYRINGE SQ SCH (12:27)
[2017-04-26 14:15] LABS: ALBUMIN 3.2 GM/DL (3.4-5.0); ALT (GPT) 39 U/L (12-78); AST (GOT) 88 U/L (15-37); BLOOD UREA NITROGEN 10 MG/DL (7-18); CALCIUM 8.7 MG/DL (8.5-10.1); CREATININE 0.83 MG/DL (0.60-1.30); GLOMERULAR FILTRATION RATE 93 ML/MIN (>89); GLUCOSE,RANDOM 176 MG/DL (74-106); SODIUM (NA) 136 MEQ/L (136-145)
[2017-04-26 14:16] LABS: BICARBONATE 21.3 MEQ/L (21.0-32.0); CHLORIDE 106 MEQ/L (98-107)
[2017-04-26 14:19] LABS: ALKALINE PHOSPHATASE 150 U/L (45-117); TOTAL BILIRUBIN ADULT 1.7 MG/DL (0.2-1.0); TOTAL PROTEIN 7.5 GM/DL (6.4-8.2)
[2017-04-27] VITALS (10 sets, daily range): BP systolic 110–143; BP diastolic 61–75; PULSE 53–74; RESP 18–20; TEMP 98.2–98.8; O2SAT 94–96
[2017-04-27] MEDS: CHLORHEXIDINE GLUCONATE 2 % 1 PACK (2 CLOTHS) TOP SCH (04:00)
[2017-04-27] MEDS: cloNIDine HCL 0.1 MG TAB PO SCH ×3 (06:07→22:00)
[2017-04-27] MEDS: ARTIFICIAL TEARS OPTH SOLN 15 ML BTL EACH EYE SCH ×3 (08:25→17:46)
[2017-04-27] MEDS: SODIUM CHLORIDE 0.9% FLUSH 10 ML FLUSH IV FLUSH SCH ×2 (08:26→20:48)
[2017-04-27] MEDS: THIAMINE HCL 100 MG TAB PO SCH (08:26)
[2017-04-27] MEDS: DOCUSATE SODIUM 50 MG/SENNA 8.6 MG TAB PO SCH ×2 (08:27→20:47)
[2017-04-27] MEDS: chlordiazePOXIDE 25 MG CAP PO SCH ×2 (08:27→20:47)
[2017-04-27] MEDS: PANTOPRAZOLE SODIUM 40 MG VIAL IV PUSH SCH (08:28)
--- NOTE | 2017-04-27 12:03 | HHI.PR ---
Subjective Remarks feeling better no nausea or vomiting Objective Vitals Vital Signs Date Time Temp Pulse Resp B/P (MAP) Pulse Ox O2 Delivery O2 Flow Rate FiO2 04/27/17 08:00 98.2 70 20 125/75 (92) 94 04/27/17 08:00 58 04/27/17 08:00 Room Air 04/27/17 05:27 98.4 70 18 143/75 (97) 96 04/27/17 04:00 56 04/27/17 00:00 74 04/26/17 23:28 98.6 74 18 133/74 (93) 95 04/26/17 21:19 98.2 77 20 146/89 (108) 94 04/26/17 20:00 61 04/26/17 20:00 Room Air 04/26/17 16:00 97.9 79 18 110/57 (74) 94 04/26/17 16:00 82 04/26/17 14:00 116/70 (85) I/O 04/26/17 04/26/17 04/26/17 04/27/17 04/27/17 04/27/17 07:00 15:00 23:00 07:00 15:00 23:00 Intake Total 0 ml 1250 ml 480 ml 240 ml Output Total 450 ml 1000 ml 1150 ml Balance -450 ml 1250 ml -520 ml -910 ml Intake Oral 0 ml 480 ml 240 ml IV Total 1250 ml Output Urine Total 450 ml 1000 ml 1150 ml # Bowel Movements 0 0 Result Diagram: 04/25/17 0529 04/26/17 1335 Imaging Last Impressions Head CT 04/23/17 0916 Signed Impressions: Service Date/Time: Sunday, April 23, 2017 09:34 - CONCLUSION: 1. No acute intracranial abnormality. Manny Chavez MD Brain MRI 04/23/17 0000 Signed Impressions: Service Date/Time: Sunday, April 23, 2017 13:22 - CONCLUSION: No acute intracranial findings Heriberto Bay MD Objective Remarks awake and alert, and pleasant and interactive anicteric conjunctivae- less erythema, neck supple lungs- no rales or wheezes regular rhythm abdomen soft, globular, + bowel sounds, nontender, no rebound extremities no edema Neuro exam_- a x ox 3, CN intact moves all extremities spontaneously A/P Assessment and Plan 67-year-old male admitted secondary to delirium tremens Encephalopathy secondary to DTs - monitor MS- Improved Alcoholism- Delirium tremens Alcohol withdrawal Continue CIWA protocol Continue folic acid Continue thiamine - Librium- taper Global weakness- Deocnditioning Related to delirium tremens PT/OT daily will need rehab Hypertension- - continue Clonidine 0.1 mg po q 8- improved Continue as needed blood pressure treatments Follow blood pressures Treat delirium tremens Alcohol Liver disease - counselled extensively 'ff LFTs DVT prophylaxis Lovenox Increase activity CM consult-- need rehab Out of bed to chair for all meal;Bonny Rucker MD Apr 27, 2017 12:03
[2017-04-27] MEDS: ENOXAPARIN SODIUM 40 MG/0.4 ML SYRINGE SQ SCH (12:12)
[2017-04-27 14:17] LABS: ALBUMIN 3.5 GM/DL (3.4-5.0); AST (GOT) 77 U/L (15-37); BICARBONATE 21.1 MEQ/L (21.0-32.0); BLOOD UREA NITROGEN 12 MG/DL (7-18); CALCIUM 9.4 MG/DL (8.5-10.1); CHLORIDE 107 MEQ/L (98-107); CREATININE 0.85 MG/DL (0.60-1.30); GLOMERULAR FILTRATION RATE 90 ML/MIN (>89); GLUCOSE,RANDOM 93 MG/DL (74-106); SODIUM (NA) 137 MEQ/L (136-145)
[2017-04-27 14:18] LABS: ALT (GPT) 41 U/L (12-78)
[2017-04-27 14:21] LABS: ALKALINE PHOSPHATASE 163 U/L (45-117); TOTAL BILIRUBIN ADULT 1.8 MG/DL (0.2-1.0); TOTAL PROTEIN 8.1 GM/DL (6.4-8.2)
[2017-04-28] VITALS (10 sets, daily range): BP systolic 104–143; BP diastolic 55–78; PULSE 53–80; RESP 16–20; TEMP 97.6–98.9; O2SAT 93–95
[2017-04-28] MEDS: CHLORHEXIDINE GLUCONATE 2 % 1 PACK (2 CLOTHS) TOP SCH (04:00)
[2017-04-28] MEDS: cloNIDine HCL 0.1 MG TAB PO SCH ×3 (06:41→21:38)
[2017-04-28] MEDS: SODIUM CHLORIDE 0.9% FLUSH 10 ML FLUSH IV FLUSH SCH ×2 (08:01→21:38)
[2017-04-28] MEDS: DOCUSATE SODIUM 50 MG/SENNA 8.6 MG TAB PO SCH ×2 (08:01→21:38)
[2017-04-28] MEDS: THIAMINE HCL 100 MG TAB PO SCH (08:01)
[2017-04-28] MEDS: PANTOPRAZOLE SOD 40 MG DELAYED RELEASE TAB PO SCH (08:02)
[2017-04-28] MEDS: ARTIFICIAL TEARS OPTH SOLN 15 ML BTL EACH EYE SCH ×3 (08:02→17:16)
[2017-04-28] MEDS: chlordiazePOXIDE 25 MG CAP PO SCH ×2 (08:02→21:38)
--- NOTE | 2017-04-28 10:34 | HHI.PR ---
Subjective Remarks feels frustrated - because he wants to do more and get up and walk discuss with him - generalized weakness - we are being careful and have PT see him dialy up in chair no complains Objective Vitals Vital Signs Date Time Temp Pulse Resp B/P (MAP) Pulse Ox O2 Delivery O2 Flow Rate FiO2 04/28/17 08:00 98.9 65 20 105/58 (74) 93 04/28/17 08:00 80 04/28/17 08:00 Room Air 04/28/17 06:41 58 143/77 (99) 04/28/17 04:56 59 04/28/17 04:00 Room Air 04/28/17 04:00 98.9 67 20 136/78 (97) 94 04/28/17 00:00 98.8 62 20 112/66 (81) 94 04/28/17 00:00 Room Air 04/27/17 23:48 60 04/27/17 21:55 56 120/64 (82) 04/27/17 20:15 98.4 67 20 121/69 (86) 95 04/27/17 20:15 Room Air 04/27/17 19:41 70 04/27/17 16:00 98.6 61 20 110/62 (78) 94 04/27/17 16:00 53 04/27/17 12:00 98.8 65 20 110/61 (77) 94 04/27/17 12:00 58 I/O 04/27/17 04/27/17 04/27/17 04/28/17 04/28/17 04/28/17 07:00 15:00 23:00 07:00 15:00 23:00 Intake Total 240 ml 480 ml 720 ml Output Total 1150 ml 1050 ml Balance -910 ml 480 ml -330 ml Intake Oral 240 ml 480 ml 720 ml Output Urine Total 1150 ml 1050 ml # Bowel Movements 0 Result Diagram: 04/25/17 0529 04/27/17 1305 Imaging Last Impressions Head CT 04/23/17 0916 Signed Impressions: Service Date/Time: Sunday, April 23, 2017 09:34 - CONCLUSION: 1. No acute intracranial abnormality. Manny Chavez MD Brain MRI 04/23/17 0000 Signed Impressions: Service Date/Time: Sunday, April 23, 2017 13:22 - CONCLUSION: No acute intracranial findings Heriberto Bay MD Objective Remarks awake and alert, and pleasant and interactive anicteric conjunctivae- not injected neck supple lungs- no rales or wheezes regular rhythm abdomen soft, globular, + bowel sounds, nontender, no rebound extremities no edema Neuro exam_- a x ox 3, CN intact moves all extremities spontaneously A/P Assessment and Plan 67-year-old male admitted secondary to delirium tremens Encephalopathy secondary to DTs- resolved - monitor MS- Improved Alcoholism- Delirium tremens- improved Alcohol withdrawal Continue CIWA protocol Continue folic acid Continue thiamine - Librium- taper bid Global weakness- Deocnditioning Related to delirium tremens PT/OT daily will need rehab wants to do more Hypertension- - continue Clonidine 0.1 mg po q 8- improved Continue as needed blood pressure treatments Follow blood pressures Alcohol Liver disease - counselled extensively 'ff LFTs HYpokalemia- replace with po KCL DVT prophylaxis Lovenox Increase activity CM consult-- need rehab- waiting for accepting facility Out of bed to chair for all meal;Bonny Rucker MD Apr 28, 2017 10:34
[2017-04-28] MEDS ORDERED: POTASSIUM CHLORIDE 20 MEQ CONTROLLED RELEASE TAB PO ONE (11:00)
[2017-04-28] MEDS: ENOXAPARIN SODIUM 40 MG/0.4 ML SYRINGE SQ SCH (11:57)
[2017-04-29] VITALS (7 sets, daily range): BP systolic 99–140; BP diastolic 58–83; PULSE 52–70; RESP 17–23; TEMP 97.7–99; O2SAT 95–97
[2017-04-29] MEDS: CHLORHEXIDINE GLUCONATE 2 % 1 PACK (2 CLOTHS) TOP SCH (04:00)
[2017-04-29] MEDS: cloNIDine HCL 0.1 MG TAB PO SCH (05:03)
[2017-04-29 07:13] LABS: BICARBONATE 19.8 MEQ/L (21.0-32.0); CALCIUM 8.9 MG/DL (8.5-10.1); CREATININE 0.71 MG/DL (0.60-1.30)
[2017-04-29] MEDS: DOCUSATE SODIUM 50 MG/SENNA 8.6 MG TAB PO SCH (08:21)
[2017-04-29] MEDS: SODIUM CHLORIDE 0.9% FLUSH 10 ML FLUSH IV FLUSH SCH (08:21)
[2017-04-29] MEDS: THIAMINE HCL 100 MG TAB PO SCH (08:21)
[2017-04-29] MEDS: chlordiazePOXIDE 25 MG CAP PO SCH (08:21)
[2017-04-29] MEDS: PANTOPRAZOLE SOD 40 MG DELAYED RELEASE TAB PO SCH (08:21)
[2017-04-29] MEDS: ARTIFICIAL TEARS OPTH SOLN 15 ML BTL EACH EYE SCH ×2 (08:22→12:26)
--- NOTE | 2017-04-29 09:42 | HHI.PR ---
Subjective Remarks patient already up on the chair- "did all my leg exercises" feeling better in better spirits emotionally and mentally very motivated Objective Vitals Vital Signs Date Time Temp Pulse Resp B/P (MAP) Pulse Ox O2 Delivery O2 Flow Rate FiO2 04/29/17 08:09 98.4 65 17 122/67 (85) 95 04/29/17 05:02 70 140/83 (102) 95 04/29/17 04:00 97.7 69 23 130/60 (83) 95 04/29/17 03:47 52 04/29/17 00:10 Room Air 04/29/17 00:09 99.0 56 20 126/64 (84) 95 04/28/17 23:42 53 04/28/17 20:00 98.3 58 16 125/72 (89) 95 04/28/17 20:00 Room Air 04/28/17 19:44 57 04/28/17 16:00 67 04/28/17 16:00 98.1 61 20 120/61 (80) 94 04/28/17 12:00 62 04/28/17 12:00 97.6 63 20 104/55 (71) 93 I/O 04/28/17 04/28/17 04/28/17 04/29/17 04/29/17 04/29/17 07:00 15:00 23:00 07:00 15:00 23:00 Intake Total 720 ml 720 ml 0 ml Output Total 1050 ml 1000 ml Balance -330 ml 720 ml -1000 ml Intake Oral 720 ml 720 ml 0 ml Output Urine Total 1050 ml 1000 ml # Voids 4 # Bowel Movements 1 0 Result Diagram: 04/25/17 0529 04/29/17 0605 Imaging Last Impressions Head CT 04/23/17 0916 Signed Impressions: Service Date/Time: Sunday, April 23, 2017 09:34 - CONCLUSION: 1. No acute intracranial abnormality. Manny Chavez MD Brain MRI 04/23/17 0000 Signed Impressions: Service Date/Time: Sunday, April 23, 2017 13:22 - CONCLUSION: No acute intracranial findings Heriberto Bay MD Objective Remarks awake and alert, and pleasant and interactive, very motivated anicteric conjunctivae-no injection neck supple lungs- no rales or wheezes regular rhythm abdomen soft, globular, + bowel sounds, nontender, no rebound extremities no edema Neuro exam_- a x ox 3, CN intact moves all extremities spontaneously A/P Assessment and Plan 67-year-old male admitted secondary to delirium tremens Encephalopathy secondary to DTs- resolved - monitor MS- Improved Global weakness- Deocnditioning Related to delirium tremens PT/OT daily will need rehab- definitely will benefit from Skilled rehab Alcoholism- Delirium tremens- improved Continue folic acid Continue thiamine - Librium- -tapered down to 25 mg po bid - 04/27 Hypertension- - improved with treatment of DTs - continue Clonidine 0.1 mg po - decrease to bid Continue as needed blood pressure treatments Follow blood pressures Alcohol Liver disease - counselled extensively 'ff LFTs- trending down HYpokalemia- Resolved DVT prophylaxis Lovenox Increase activity CM consult-- need rehab- d/w CM- working on it- will figure out insurance- hopefully gets accepted Out of bed to chair for all meal;Bonny Rucker MD Apr 29, 2017 09:42
[2017-04-29] MEDS ORDERED: POTASSIUM CHLORIDE 20 MEQ CONTROLLED RELEASE TAB PO ONE (09:45)
[2017-04-29] MEDS: ENOXAPARIN SODIUM 40 MG/0.4 ML SYRINGE SQ SCH (12:26)
[2017-04-29] MEDS ORDERED: CLON.1 PO (14:51)
[2017-04-29] MEDS ORDERED: CHLO25CA9 PO (14:51)
[2017-04-29] MEDS ORDERED: PANT40TA3 PO (14:52)
[2017-04-29] MEDS ORDERED: THIA100 PO (14:52)
--- NOTE | 2017-04-29 14:54 | HHI.DS ---
Discharge Summary Admission Date Apr 23, 2017 at 12:41 Discharge Date: Apr 29, 2017 Admitting Diagnosis Alcohol Withdrawal/Tremors (1) Delirium tremens ICD Code: F10.231 - Alcohol dependence with withdrawal delirium Diagnosis: Principal Status: Acute (2) HTN (hypertension) ICD Code: I10 - Essential (primary) hypertension Diagnosis: Secondary Procedures none Brief History - From Admission History of Present Illness HPI Patient states he normally drinks 6 beers per day but has been cutting back recently and had a glass of wine last night. Apparently he was at the [facility] having normal blood work but when he stood up he became somewhat dizzy and noticed his arms and legs were shaking, they took his blood pressure noted to be significantly elevated so they called and wanted to bring him here. Patient denies any headache focalized wheeziness chest pain shortness of breath abdominal pain nausea vomiting. Patient states his symptoms are going on and off for the past few months, he does not know how long they have been going on now. Patient was evaluated in the ER and was felt to be in alcohol withdrawal with bilateral tremors in his upper extremities. Hospitalist service was contacted however felt patient needed to be admitted to the ICU. Patient was accepted for admission by critical care medicine service. He had an MRI brain which was unremarkable. When I evaluated the patient following his arrival to the ICU he was laying in bed comfortably not in any acute distress. He did not appear anxious or agitated. His CIWA score was 12 and he received Ativan per protocol. History PFSH Past Medical History Arthritis: No Asthma: No Autoimmune Disease: No Blood Disorders: No Anxiety: No Depression: No Heart Rhythm Problems: No Cancer: No Cardiovascular Problems: Yes High Cholesterol: Yes Chest Pain: No Congestive Heart Failure: No COPD: No Cerebrovascular Accident: No Diabetes: No Diminished Hearing: No Endocrine: No Gastrointestinal Disorders: Yes GERD: Yes Glaucoma: No Genitourinary: No Headaches: No Hepatitis: No Hiatal Hernia: No Hypertension: No Immune Disorder: No Kidney Stones: No Musculoskeletal: No Neurologic: Yes Psychiatric: No Reproductive: No Respiratory: No Migraines: No Myocardial Infarction: No Renal Failure: No Seizures: No Sickle Cell Disease: No Sleep Apnea: No Thyroid Disease: No Ulcer: No Past Surgical History Abdominal Surgery: No AICD: No Appendectomy: No Arteriovenous Shunt: No Cardiac Surgery: No Cholecystectomy: No Ear Surgery: No Endocrine Surgery: No Eye Surgery: No Genitourinary Surgery: No Gynecologic Surgery: No Insulin Pump: No Joint Replacement: No Oral Surgery: Yes (TEETH EXTRACTIONS) Pacemaker: No Thoracic Surgery: No Other Surgery: Yes Social History Alcohol Use: Yes (6 TO 8 DAILY, OCCASSIONALLY VODKA) Tobacco Use: Yes (1/2 PACK/DAY) Substance Use: No Allergies-Medications Allergies-Medications (Allergen,Severity, Reaction): Coded Allergies: No Known Allergies (Verified Adverse Reaction, Unknown, 04/23/17) Reported Meds & Prescriptions Reported Meds & Active Scripts Active Active Prescriptions or Reported Medications Unobtainable ROS Review of Systems Except as stated in HPI: all other systems reviewed are Neg CBC/BMP: 04/25/17 0529 04/29/17 0605 Significant Findings Laboratory Tests Test 04/27/17 13:05 04/29/17 06:05 Alkaline Phosphatase 163 U/L (45-117) Aspartate Amino Transf (AST/SGOT) 77 U/L (15-37) Total Bilirubin 1.8 MG/DL (0.2-1.0) Potassium Level 3.3 MEQ/L (3.5-5.1) Carbon Dioxide Level 19.8 MEQ/L (21.0-32.0) Imaging Last Impressions Head CT 04/23/17 0916 Signed Impressions: Service Date/Time: Sunday, April 23, 2017 09:34 - CONCLUSION: 1. No acute intracranial abnormality. Manny Chavez MD Brain MRI 04/23/17 0000 Signed Impressions: Service Date/Time: Sunday, April 23, 2017 13:22 - CONCLUSION: No acute intracranial findings Heriberto Bay MD PE at Discharge awake and alert, and pleasant and interactive, very motivated anicteric conjunctivae-no injection neck supple lungs- no rales or wheezes regular rhythm abdomen soft, globular, + bowel sounds, nontender, no rebound extremities no edema Neuro exam_- a x ox 3, CN intact moves all extremities spontaneously Pt update on day of discharge awake and alert very motivated with therapy and alcohol cessation interactive definitely will benefit from SNF Hospital Course 67-year-old male admitted secondary to delirium tremens Encephalopathy secondary to DTs- resolved - monitor MS- Improved Global weakness- Deocnditioning Related to delirium tremens PT/OT daily will need rehab- definitely will benefit from Skilled rehab Alcoholism- Delirium tremens- improved Continue folic acid Continue thiamine - Librium- -tapered down to 25 mg po bid - 04/27 Hypertension- - improved with treatment of DTs - continue Clonidine 0.1 mg po - decrease to bid Continue as needed blood pressure treatments Follow blood pressures Alcohol Liver disease - counselled extensively 'ff LFTs- trending down HYpokalemia- Resolved DVT prophylaxis Lovenox Increase activity CM consult-- need rehab- d/w CM- working on it- will figure out insurance- hopefully gets accepted Out of bed to chair for all meal;s Pt Condition on Discharge: Stable Discharge Disposition: Discharge to SNF Discharge Time: > 30 minutes Discharge Instructions DIET: Follow Instructions for: Heart Healthy Diet Speech Therapy-Diet Recommends: Regular Activities you can perform: Weight Bearing as Delisa Follow up Referrals: PCP Follow-up - 3-5 Days with PCP-humana/JAY New Medications: Chlordiazepoxide HCl (Chlordiazepoxide HCl) 25 Mg Capsule 25 MG PO BID for DTS for 3 Days, #6 TAB Clonidine (Catapres) 0.1 Mg Tab 0.1 MG PO Q12HR for HTN for 28 Days, TAB Pantoprazole (Pantoprazole) 40 Mg Tab 40 MG PO DAILY for gipro for 30 Days, #30 TAB Thiamine HCl (Gnp Vitamin B-1) 100 Mg Tab 100 MG PO DAILY for ETO for 30 Days, #30 TAB Bonny Perez MD Apr 29, 2017 14:54
[2017-04-29] MEDS ORDERED: cloNIDine HCL 0.1 MG TAB PO SCH (21:00)
== END 2017-04-29 16:49 | DRG 896 ==
LOC: NEPC 08:39 → NEDA 12:41 → HIMW 19:20 → N04A 04-24 15:18
PROVIDERS: ADMIT Internal Medicine; ATTEND Internal Medicine
DX: F10.231 Alcohol dependence with withdrawal delirium (principal); G93.49 Other encephalopathy; I10 Essential (primary) hypertension; Y90.1 Blood alcohol level of 20-39 mg/100 ml; F17.200 Nicotine dependence, unspecified, uncomplicated; R53.1 Weakness; E87.6 Hypokalemia; Z78.1 Physical restraint status; K70.9 Alcoholic liver disease, unspecified
CPT/HCPCS: 70450; 70551; 80048; 80053; 80307; 81001; 82140; 82948; 83735; 84100; 84443; 85025; 85610; 85730; 87641; 93005; 96361; 96365; 96375; 96376; C9113; J1650; J2060; J3411; J3480; J7030; J7040